=== PATIENT | female | born 1980 | race Two or more races ===

== ENCOUNTER 2017-05-05 12:57 | Emergency (ER) | payer OTHER ==
[~2017-05-05] VITALS: Ht 134.6 cm; Wt 67.1 kg
[2017-05-05 13:56] LABS: Basophils # (auto) 0 uL; Eosinophils # (auto) 0.1 uL; Lymphocytes # (auto) 1.1 uL; Lymphocytes % (auto) 9.2 % (10.0-50.0); Mean Corpuscular Hemoglobin 20.6 pg (28.0-32.0); Monocytes # (auto) 0.7 uL
[2017-05-05 13:58] LABS: Basophils % (auto) 0.2 % (0.0-2.0); Eosinophils % (auto) 0.6 % (0.0-7.0); Hematocrit 32.7 % (36.0-46.0); Mean Corpuscular Hgb Conc. 30.6 g/dL (32.0-36.0); Mean Corpuscular Volume 67.5 fL (80.0-100.0); Mean Platelet Volume 8.7 fL (6.9-10.8); Monocytes % (auto) 5.9 % (0.0-12.0); Neutrophils # (auto) 9.6 uL; Neutrophils % (auto) 84.1 % (37.0-80.0); Platelet Count (auto) 325 10^3/uL (140-450); Red Cell Distribution Width 18.1 % (11.8-14.3); White Blood Cell 11.4 10^3/uL (4.4-10.8)
[2017-05-05 14:19] LABS: Albumin 4.1 g/dL (3.4-5.0); BUN/Creatinine Ratio 17.2; Bilirubin, Total 0.6 mg/dL (0.2-1.0); Calcium 8.8 mg/dL (8.5-10.1); Potassium 3.7 mmol/L (3.5-5.1); Total Protein 8.2 g/dL (6.4-8.2)
[2017-05-05] MEDS ORDERED: SODIUM CHLORIDE 0.9% 1,000 ML IV ONE (19:45)
[2017-05-05] MEDS ORDERED: ONDANSETRON HCL 4 MG/2 ML VIAL IV ONE (20:00)
[2017-05-05] MEDS ORDERED: PANTOPRAZOLE 40 MG/10 ML VIAL IV ONE (20:00)
[2017-05-05] MEDS ORDERED: HYDROmorphone HCL 2 MG/ML VL IV ONE (20:00)
[2017-05-05 21:11] VITALS: BP 126/89
== END 2017-05-05 21:35 | disposition home or self-care (01) ==
LOC: ER 12:57
DX: K29.00 Acute gastritis without bleeding (principal); J32.1 Chronic frontal sinusitis
CPT/HCPCS: 36415; 74176; 80053; 85025; 96361; 96374; 96375; 99285; C9113; J1170; J2405; J7030